=== PATIENT | male | born 1960 | race Caucasian/White ===

== ENCOUNTER 2017-02-05 18:05 | Inpatient (IN) | payer OTHER ==
[~2017-02-05] VITALS: Ht 182.9 cm; Wt 97.5 kg
--- NOTE | ~2017-02-05 | HP ---
Unit #: [id number] #: [id number] Patient: ALEXANDER MARTINEZ III [id number] [place] [address] [id number] MR#: [id number] NAME: ALEXANDER MARTINEZ III ROOM: P180 Age: 56 Sex: M Admission Date: 02/05/2017 : 1960 Attending Physician: Poncho Pendleton M.D. Admitting Physician: Poncho Pendleton M.D. Primary Care Physician: Abner Doctor Not In System HISTORY AND PHYSICAL HISTORY OF PRESENT ILLNESS Alexander is a 56 year old admitted to [facility] because of his continued abuse of alcohol. He has had numerous admissions to this facility for treatment of the same. PAST MEDICAL HISTORY 1. Long history of alcohol abuse. 2. COPD. 3. History of rectal cancer. a. Chemotherapy. b. Colostomy. 4. High blood pressure. PAST SURGICAL HISTORY As above. ALLERGIES No known drug allergies. SOCIAL HISTORY Smokes 1 pack per day. Drinks up to two fifths of liquor on a daily basis and denies illicit drug use. FAMILY HISTORY Medically noncontributory. REVIEW OF SYSTEMS CONSTITUTIONAL: No fever or chills. HEENT: Denies any sore throat, ear pain or runny nose. CARDIOVASCULAR: Denies chest pain, irregular heart rhythm or palpitations. CHEST: Denies shortness of breath or cough. No hemoptysis. GASTROINTESTINAL: Denies nausea, vomiting, diarrhea or chronic constipation. ENDOCRINE: Denies history of increased thirst or urination. No recent significant weight loss or gain. GENITOURINARY: Denies dysuria, frequency, or hematuria. SKIN: Denies any rashes. HEMATOLOGIC: Denies history of increased bleeding or bruising. MUSCULOSKELETAL: Denies any hot, swollen joints. No generalized muscle pain. NEUROLOGIC: Denies problems with vision or speech. No frequent, severe headaches. No numbness, tingling or weakness in any extremities. Denies loss of bladder or bowel control. Unit #: [id number] #: [id number] Patient: ALEXANDER MARTINEZ III CURRENT MEDICATIONS 1. Detox protocol. 2. Remeron 15 mg q.h.s. 3. Trazodone 75 mg q.h.s. 4. Celexa 20 mg daily. 5. Multivitamin 1 daily. PHYSICAL EXAMINATION GENERAL: Alert, well-nourished, in no apparent distress. VITAL SIGNS: Blood pressure 162/100, heart rate 80, respirations 16, temperature 98.6. WEIGHT: 215. HEIGHT: 6 feet 0 inches. SKIN: Warm and dry without rash or lesion. HEENT: Normocephalic. TMs not viewed. Oral and nasal passages clear. Conjunctivae clear. PERRLA. EOMs intact. NECK: Supple without lymphadenopathy or thyromegaly. HEART: Regular rate and rhythm without murmur. LUNGS: Clear. ABDOMEN: Soft, nontender. Colostomy bag noted. : Not done. EXTREMITIES: No evidence of cyanosis, clubbing or edema. Moves all without focal deficit. NEUROLOGICAL: Grossly within normal limits. Cranial Nerves: II: Visual silva are intact. III, IV AND : Extraocular movements are intact. Pupils are equal, round and reactive to light. V: Facial sensation is grossly normal. VII: Facial movements and expression are normal. VIII: Auditory acuity grossly intact. IX, X: Uvula is midline. Phonation is normal. XI: Patient shrugs shoulders and turns head normally. XII: Tongue protrudes in the midline. Sensory and Motor Function: Sensory and motor sensation is grossly normal. Motor: moves all extremities well. Coordination: Gait is normal. Deep Tendon Reflexes: Intact. IMPRESSION Psychiatric admission. RECOMMENDATIONS PSYCHIATRIC: Per psychiatrist. MEDICAL: See no contraindication to participate in facility's activities. MEDICAL PROGNOSIS Good. MEDICAL CONDITION Stable. Dictated by... Mirela Calderon P.A.-C. for Kim Novoa/jag Unit #: [id number] #: [id number] Patient: ALEXANDER MARTINEZ III TD: 02/06/2017 22:19 JOB #: [id number] HISTORY AND PHYSICAL Page 1 of 1 X Mirela Calderon HISTORY AND PHYSICAL
--- NOTE | ~2017-02-05 | PA ---
Unit #: [id number] #: [id number] Patient: ALEXANDER MARTINEZ III [id number] [facility] [address] [place] [address] [id number] MR#: [id number] NAME: ALEXANDER MARTINEZ III ROOM: 80 Age: 56 Sex: M Admission Date: 02/05/2017 : 1960 Date of Assessment: Attending Physician: Poncho Pendleton M.D. Admitting Physician: Poncho Pendleton M.D. Primary Care Physician: Generic Doctor Not In System PSYCHIATRIC ASSESSMENT INFORMANTS The patient's reliability fair; chart reliability, good. CHIEF COMPLAINT Alcohol abuse and alcohol detox. HISTORY OF PRESENT ILLNESS Mr. Alexander Martinez is a 56-year-old male, presented with the above-mentioned complaint. The patient presented with depressive symptom, alcohol abuse. The patient presented with the above-mentioned complaint. The patient presented from [facility] on a 72-hour hold for a suicidal ideation with a plan to drink himself to . The patient reported that he has relapsed 3 months ago and reported drinking daily 2 fifth of vodka, last drink was on 02/05/2017. The patient denied any homicidal ideation or psychotic symptom. The patient reported drinking alcohol since age 13, 2 fifth of vodka daily. Denied any use of any street drugs. The patient reported longest period of sobriety 2 months, last period of sobriety in 2016. The patient reported history of blackouts, withdrawal symptom, but no history of HIV, hepatitis, or IV drug use. The patient reported abdominal cramping, muscle cramping, diarrhea, diaphoresis, depressed mood, headache, irritability, nervousness, poor appetite, poor concentration, restlessness, sleep problem, tremors. Needing inpatient admission at this time for psychiatric stabilization. PAST PSYCHIATRIC HISTORY Remarkable for history of previous treatment in 06/2016. History of outpatient services. History of previous detox in 2003. FAMILY HISTORY AND SOCIAL HISTORY The patient lives with family, has a daughter, daughter's , grandson. The patient's family psychiatric illness is remarkable for history of alcohol abuse in mother's side of the family. No known history of any abuse. MEDICAL HISTORY Remarkable for history of rectal cancer, colostomy bag. Musculoskeletal; muscle strength and tone, no atrophy or abnormal movement. Gait normal. MEDICATION HISTORY The patient is on stool softener. ALLERGIES No known drug allergies. Unit #: [id number] #: [id number] Patient: ALEXANDER MARTINEZ III SUBSTANCE ABUSE HISTORY Please see above. REVIEW OF SYSTEMS HEENT: Eyes, clear. Ears, nose, mouth, and throat; clear. CARDIOVASCULAR: Unremarkable. RESPIRATORY: Unremarkable. GI: Unremarkable. : Unremarkable. SKIN: Unremarkable. LYMPH NODE: Unremarkable. NEUROLOGIC: Unremarkable. ENDOCRINE: Unremarkable. HEMATOLOGIC: Unremarkable. ALLERGIC/IMMUNOLOGIC: Unremarkable. MUSCULOSKELETAL: Muscle strength and tone, no atrophy or abnormal movement. Gait normal. MENTAL STATUS EXAMINATION CONSTITUTIONAL: Measurement of vital signs; temperature 98.5, pulse 109, respirations 16, blood pressure 163/101; height 6 feet and weight 215 pounds. GENERAL APPEARANCE: The patient dressed casually. The patient did not show any facial deformity. MUSCULOSKELETAL: Please see above. PSYCHIATRIC EXAMINATION Description of speech; regular rate, normal volume, normal articulation, coherent. Description of thought process, goal directed. Description of association, intact. Description of abnormal psychotic thinking; the patient denied any hallucination or delusions, but mood lability, sad, depressed, suicidal ideation. Description of the patient's judgment; concerning everyday activity, poor. Social situation, poor. Concerning psychiatric condition, poor. Complete mental status examination; oriented in time, place, and person. Recent and remote memory, fair. Attention span and concentration, fair. Language, able to name object and repeat phrases. Fund of knowledge, aware of current event and passive vocabulary intact. Mood and affect, sad and dysphoric. Insight and judgment, fair to poor. ASSETS AND LIABILITIES Assets; the patient articulate, able to take care of his ADL. Liability; history of depression, substance abuse. ADMITTING DIAGNOSES Psychiatric: Major depressive disorder, recurrent, severe, F33.2; alcohol use disorder, severe, F10.20. Secondary diagnosis: Deferred. Medical diagnoses: Colostomy back, hypertension, hearing problems. Stressors: Psychosocial stressors. PSYCHIATRIC PLAN AND TREATMENT GOAL 1. Advised to admit the patient on the inpatient unit. Provide safe, Unit #: [id number] #: [id number] Patient: ALEXANDER MARTINEZ III supportive, and structured environment. 2. Ordered labs; CBC, CMP, UA, and UDS. 3. Detox protocol and detox monitoring. Advised to resume Celexa. The patient to attend all the programing with group therapy, individual therapy, chemical dependency group. Treatment goal to attain euthymic mood, gain insight into his problem, and learn coping skills. DISCHARGE PLAN Plan to stabilize the patient and consider followup in outpatient program. ESTIMATED LENGTH OF STAY 3 to 5 days. Dictated by... Kim Ruth/nabeel TD: 02/07/2017 00:10 JOB #: [id number] PSYCHIATRIC ASSESSMENT Page 1 of 1 X Poncho Pendleton MD X PSYCHIATRIC ASSESSMENT
--- NOTE | ~2017-02-05 | PN ---
Unit #: [id number] #: [id number] Patient: ALEXANDER MARTINEZ III [id number] [facility] [address] [place] [address] [id number] MR#: [id number] NAME: ALEXANDER MARTINEZ III ROOM: P180 Age: Sex: M Admission Date: 02/05/2017 : 1960 Attending Physician: Poncho Pendleton M.D. Admitting Physician: Poncho Pendleton M.D. Primary Care Physician: Generic Doctor Not In System [facility] PROGRESS NOTES DATE OF SERVICE 02/06/2017 DISCUSSION Alexander Martinez is a 56-year-old male seen on 02/06/2017. Patient interviewed, chart reviewed, I obtained information from nursing staff. Patient continues to be sad, depressed, flat, withdrawn, isolative, guarded, having withdrawal symptoms. Vital signs: 98.4, 109, 163/101 COMPLETE REVIEW OF SYSTEMS Unremarkable. MENTAL STATUS EXAMINATION GENERAL APPEARANCE: Patient dressed casually. ATTENTION SPAN AND CONCENTRATION: Fair. Oriented in time, place and person. MOOD AND AFFECT: Sad, dysphoric flat. SPEECH: Monotone. THOUGHT PROCESS: [place]. Patient reported having passive SI, denied any homicidal ideation or psychotic symptom. RECENT AND REMOTE MEMORY: Poor. INSIGHT AND JUDGMENT: Poor. DIAGNOSES Major depressive disorder, recurrent, severe Alcohol use disorder, severe ASSESSMENT/PLAN Advised to continue with current medication and therapeutic protocol. If needed, consider further adjustment in medication. Dictated by... Kim Ruth/aleta TD: 02/06/2017 23:55 JOB #: [id number] Unit #: [id number] #: [id number] Patient: ALEXANDER MARTINEZ III PROGRESS NOTES Page 1 of 1 X Poncho Pendleton MD PROGRESS NOTE
--- NOTE | ~2017-02-05 | DS ---
Unit #: [id number] #: [id number] Patient: ALEXANDER MARTINEZ III [id number] [facility] [address] [place] [address] [id number] I MR#: [id number] NAME: ALEXANDER MARTINEZ III ROOM: [facility] Age: 56 Sex: M Admission Date: 02/05/2017 : 1960 Discharge Date: 02/11/2017 Attending Physician: Poncho Pendleton M.D. Primary Care Physician: Generic Doctor Not In System DISCHARGE SUMMARY REASON FOR ADMISSION Alcohol abuse, depression. DIAGNOSTIC STUDIES LABORATORY RESULTS: Remarkable for alkaline phosphatase 137 and hemoglobin 11.4. HOSPITAL COURSE The patient was admitted to inpatient unit on 02/05/2017 and discharged on 02/11/2017. The patient was treated on the inpatient unit with group therapy, individual therapy, chemical dependency group, detox protocol, detox monitoring, psychotherapy. The patient was responsive to treatment. Subsequently, the patient was discharged with a plan to follow up in outpatient program. DISCHARGE MEDICATIONS Lopressor 100 mg b.i.d. for hypertension and Norvasc 10 mg daily for hypertension. DISCHARGE DIAGNOSES Psychiatric: Major depressive disorder, recurrent, severe, F33.2; alcohol use disorder, severe, F10.20. Secondary diagnosis: Deferred. Medical diagnoses: The patient has a colostomy bag, hypertension, hearing problems. Stressors: Psychosocial stressors. DISCHARGE INSTRUCTIONS The patient to follow up in outpatient clinic as per social and human services assistant. CONDITION ON DISCHARGE The patient was pleasant and cooperative. Denied any psychotic symptom or any suicidal ideation. PROGNOSIS Guarded. DIET AND ACTIVITY As tolerated. Unit #: [id number] #: [id number] Patient: ALEXANDER MARTINEZ III Dictated by... Kim Ruth/nabeel TD: 02/11/2017 16:37 JOB #: [id number] DISCHARGE SUMMARY Page 1 of 1 X Poncho Pendleton MD X DISCHARGE SUMMARY
--- NOTE | ~2017-02-05 | PN ---
Unit #: [id number] #: [id number] Patient: ALEXANDER MARTINEZ III [id number] [facility] [address] [place] [address] [id number] I MR#: [id number] NAME: ALEXANDER MARTINEZ III ROOM: P180 Age: 56 Sex: M Admission Date: 02/05/2017 : 1960 Attending Physician: Poncho Pendleton M.D. Admitting Physician: Poncho Pendleton M.D. Primary Care Physician: Generic Doctor Not In System [facility] PROGRESS NOTES DATE 02/09/2017 DISCUSSION Alexander Martinez is a 56-year-old male seen on 02/09/2017. Patient interviewed. Chart reviewed. Obtained information from nursing staff. Patient continues to be anxious, nervous. Reports still having withdrawal symptoms, restlessness, anxiety. Patient's vital signs 97.4, 126, 152/85. Mood labile, sad, dysphoric, withdrawn. Complete review of system unremarkable. MENTAL STATUS EXAMINATION General appearance, patient dressed casually. Attention span, concentration fair. Oriented in time, place and person. Mood and affect sad, dysphoric. Speech monotone. Thought process concrete. Patient denied any thoughts of harming self or others but withdrawn, isolative, guarded, seclusive, anxious. Recent and remote memory poor. Insight and judgement poor. DIAGNOSES 1. Alcohol use disorder, severe. 2. Mood disorder NOS. ASSESSMENT/PLAN Advised to continue with current medication and therapeutic protocol. If needed, consider further adjustment of medication. Dictated by... Kim Ruth/jag TD: 02/09/2017 22:02 JOB #: [id number] Unit #: [id number] #: [id number] Patient: ALEXANDER MARTINEZ III [facility] PROGRESS NOTES Page 1 of 1 X Poncho Pendleton MD PROGRESS NOTE
--- NOTE | ~2017-02-05 | PN ---
Unit #: [id number] #: [id number] Patient: ALEXANDER MARTINEZ III [id number] [facility] [address] [place] [address] [id number] MR#: [id number] NAME: ALEXANDER MARTINEZ III ROOM: P180 Age: 56 Sex: M Admission Date: 02/05/2017 : 1960 Attending Physician: Poncho Pendleton M.D. Admitting Physician: Poncho Pendleton M.D. Primary Care Physician: Generic Doctor Not In System [facility] PROGRESS NOTES DATE OF SERVICE 02/08/2017 DISCUSSION Alexander Martinez is a 56-year-old male. Patient interviewed, chart reviewed, I obtained information from nursing staff. Patient compliant, cooperative. Patient reported that he is feeling better, but still somewhat anxious, nervous, having withdrawal symptoms; mood sad, dysphoric; flat affect, withdrawn, isolative. COMPLETE REVIEW OF SYSTEMS Unremarkable. MENTAL STATUS EXAMINATION GENERAL APPEARANCE: Patient dressed casually. ATTENTION SPAN AND CONCENTRATION: Fair. ORIENTATION: Time, place and person. MOOD AND AFFECT: Labile. SPEECH: Monotone. THOUGHT PROCESS: [place]. Patient denied any thoughts of harming self or others. RECENT AND REMOTE MEMORY: Poor. INSIGHT AND JUDGMENT: Poor. DIAGNOSES Mood disorder, NOS Alcohol use disorder, severe ASSESSMENT/PLAN Advised to continue with current medication and therapeutic protocol. If needed, consider further adjustment in medication. Dictated by... Kim Ruth/aleta TD: 02/09/2017 03:14 JOB #: [id number] Unit #: [id number] #: [id number] Patient: ALEXANDER MARTINEZ III [facility] PROGRESS NOTES Page 1 of 1 X Poncho Pendleton MD PROGRESS NOTE
--- NOTE | ~2017-02-05 | PN ---
Unit #: [id number] #: [id number] Patient: ALEXANDER MARTINEZ III [id number] [facility] [address] [place] [address] [id number] I MR#: [id number] NAME: ALEXANDER MARTINEZ III ROOM: P180 Age: 56 Sex: M Admission Date: 02/05/2017 : 1960 Attending Physician: Poncho Pendleton M.D. Admitting Physician: Poncho Pendleton M.D. Primary Care Physician: Generic Doctor Not In System [facility] PROGRESS NOTES DATE 02/10/2017 DISCUSSION Alexander Martinez is a 56-year-old male, seen on 02/10/2017. The patient interviewed, chart reviewed, and obtained information from the nursing staff. The patient tolerating medication fairly well, compliant and cooperative, making progress. No side effects from medication. The patient's vital signs, 97.4, 127, 16, and 200/100. REVIEW OF SYSTEMS Complete review of systems unremarkable. MENTAL STATUS EXAMINATION General appearance: Patient dressed casually. Attention span and concentration, fair. Oriented in place and person. Mood and affect, labile. Speech, monotone. Thought process, concrete. The patient denied any thoughts of harming self or others or any psychotic symptoms. Recent and remote memory, poor. Insight and judgment, poor. DIAGNOSES 1. Alcohol use disorder, severe. 2. Mood disorder, NOS. ASSESSMENT/PLAN Advised to continue with the current medication and therapeutic protocol, and if needed consider further adjustment of medication. Dictated by... Kim Ruth/amrita TD: 02/12/2017 05:33 JOB #: [id number] Unit #: [id number] #: [id number] Patient: ALEXANDER MARTINEZ III [facility] PROGRESS NOTES Page 1 of 1 X Poncho Pendleton MD PROGRESS NOTE
--- NOTE | ~2017-02-05 | PN ---
Unit #: [id number] #: [id number] Patient: ALEXANDER MARTINEZ III [id number] [facility] [address] [place] [address] [id number] I MR#: [id number] NAME: ALEXANDER MARTINEZ III ROOM: 80 Age: 56 Sex: M Admission Date: 02/05/2017 : 1960 Attending Physician: Poncho Pendleton M.D. Admitting Physician: Poncho Pendleton M.D. Primary Care Physician: Generic Doctor Not In System [facility] PROGRESS NOTES DATE OF SERVICE 02/07/2017 DISCUSSION Mr. Alexander Martinez is a 56-year-old male seen on 02/07/2017. Patient interviewed, chart reviewed. Obtained information from nursing staff. Patient was compliant and cooperative. Mood sad, dysphoric, flat affect. Patient was started back on his anti-hypertensive and feeling better. The patient's blood pressure was 200/168, temperature 97.4, pulse 127. Complete review of systems unremarkable. MENTAL STATUS EXAMINATION General appearance, patient dressed casually. Attention span and concentration fair. Oriented to time, place and person. Mood and affect labile. Speech monotone. Thought process concrete. Patient denied any suicidal or homicidal ideation but sad, depressed, withdrawn, isolative, having withdrawal symptoms as mentioned above. Recent and remote memory poor. Insight and judgement poor. DIAGNOSES 1. Mood disorder NOS. 2. Alcohol use disorder severe. ASSESSMENT/PLAN Advise to continue with current medication and therapeutic protocol. Continue with the detox protocol and monitoring. If needed consider further adjustment of medication. Dictated by... Kim Ruth/mckenzie TD: 02/07/2017 22:51 JOB #: [id number] Unit #: [id number] #: [id number] Patient: ALEXANDER MARTINEZ III PROGRESS NOTES Page 1 of 1 X Poncho Pendleton MD PROGRESS NOTE
[2017-02-06 09:55] LABS: URINE APPEARANCE CLEAR; URINE BILIRUBIN NEG (NEG); URINE BLOOD NEG (NEG); URINE COLOR YELLOW; URINE GLUCOSE NEG (NEG); URINE KETONE NEG (NEG); URINE LEUKOCYTE ESTERASE NEG (NEG); URINE NITRATE NEG (NEG); URINE PROTEIN TRACE (NEG); URINE SPECIFIC GRAVITY 1.026 (1.003-1.035); URINE UROBILINOGEN 0.2 MG/DL (NEG)
[2017-02-06 09:56] LABS: BASOPHIL% 0.4 % (0-2.5); EOSINOPHIL# 0.1 X10e3 (0-0.7); EOSINOPHIL% 0.9 % (0.0-7.0); HEMATOCRIT 37.7 % (38.0-50.0); HEMOGLOBIN 11.7 gm/dL (13.0-16.0); LYMPHOCYTE# 1.1 X10e3 (1.0-3.5); LYMPHOCYTE% 15.5 % (17.0-45.0); MEAN CELL VOLUME 77.8 FL (83-96); MEAN CORPUSCULAR HEMOGLOBIN 24.1 PG (28-34); MEAN PLATELET VOLUME 7.6 FL (6.5-11.5); MONOCYTE# 0.5 X10e3 (0-1.0); MONOCYTE% 6.5 % (3.0-12.0); NEUTROPHIL# 5.4 X10e3 (1.5-7.1); NEUTROPHIL% 76.7 % (40-75); PLATELET COUNT 275 X10e3 (140-420); RED BLOOD COUNT 4.84 X10e (3.90-5.60); WHITE BLOOD COUNT 7.1 X10e3 (4.0-10.5)
[2017-02-06 10:01] LABS: DIFF IND NO
[2017-02-06 10:16] LABS: ALBUMIN SERUM 3.8 g/dL (3.5-5.0); BILIRUBIN,TOTAL 0.7 mg/dL (0.2-2.0); CREATININE SERUM 0.8 mg/dL (0.6-1.4); GLOM FILT RATE Estimated 99.2 mL/min (>60); POTASSIUM 4.1 mmol/L (3.5-5.1); PROTEIN TOTAL SERUM 7.2 g/dL (6.0-8.3)
[2017-02-06 11:01] LABS: AMPHETAMINE NEG (NEG); BARBITURATES NEG (NEG); BENZODIAZEPINES NEG (NEG); COCAINE NEG (NEG); MARIJUANA NEG (NEG); OPIATES NEG (NEG); TRICYCLIC ANTIDEPRESSANTS NEG (NEG); U METHADONE NEG (NEG)
== END 2017-02-11 10:55 | disposition home or self-care (01) | DRG 885 ==
LOC: P1E 22:05
PROVIDERS: Psychiatry & Neurology Psychiatry
PROC: HZ2ZZZZ Detoxification Services for Substance Abuse Treatment (ICD-10-PCS; principal; 2017-02-05)
DX: F33.2 Major depressive disorder, recurrent severe without psychotic features (principal); R45.851 Suicidal ideations; F39 Unspecified mood [affective] disorder; F10.20 Alcohol dependence, uncomplicated; I10 Essential (primary) hypertension; H91.90 Unspecified hearing loss, unspecified ear; F17.210 Nicotine dependence, cigarettes, uncomplicated; Z93.3 Colostomy status
CPT/HCPCS: 80053; 80307; 81003; 85025; 86592

== ENCOUNTER 2017-02-14 11:17 | Inpatient (IN) | payer OTHER ==
[~2017-02-14] VITALS: Ht 88.9 cm; Wt 97.5 kg
--- NOTE | ~2017-02-14 | DS ---
Unit #: [id number] #: [id number] Patient: ALEXANDER MARTINEZ III [id number] [facility] [address] [place] [address] [id number] I MR#: [id number] NAME: ALEXANDER MARTINEZ III ROOM: [facility] Age: 56 Sex: M Admission Date: 02/14/2017 : 1960 Discharge Date: 02/18/2017 Attending Physician: Poncho Pendleton M.D. Primary Care Physician: Generic Doctor Not In System DISCHARGE SUMMARY REASON FOR ADMISSION Alcohol abuse, depression. DIAGNOSTIC STUDIES LABORATORY DATA: Unremarkable. HOSPITAL COURSE The patient was admitted to inpatient unit on 02/14/2017 and discharged on 02/18/2017. The patient was treated with group therapy, individual therapy, medication management, chemical dependency group. The patient was responsive to treatment, showed improvement. Subsequently the patient was discharged with a plan to follow up in outpatient program. DISCHARGE MEDICATIONS 1. Norvasc 10 mg daily for hypertension. 2. Lopressor 100 mg twice daily for hypertension. 3. Celexa 20 mg daily for depression. 4. Vistaril 25 mg 3 times a day for anxiety. DISCHARGE DIAGNOSES PSYCHIATRIC: Major depressive disorder, recurrent, severe, F33.2 Alcohol use disorder, severe. SECONDARY: Deferred. MEDICAL: Colostomy bag. Hypertension. Hearing problem. STRESSORS: Psychosocial stressor. FOLLOWUP CARE The patient to follow up in outpatient clinic as per licensed clinical social worker. CONDITION AT DISCHARGE The patient pleasant, cooperative. Denied any psychotic symptom or any suicidal ideation. PROGNOSIS Guarded. DIET AND ACTIVITY As tolerated. The patient to receive a Vivitrol shot upon discharge, 380 mg deep intramuscular IM every 30 days. Unit #: [id number] #: [id number] Patient: ALEXANDER MARTINEZ III Dictated by... Poncho Pendleton M.D. SZC/bzg TD: 02/21/2017 07:24 JOB #: [id number] DISCHARGE SUMMARY Page 1 of 1 X Poncho Pendleton MD DISCHARGE SUMMARY
--- NOTE | ~2017-02-14 | HP ---
Unit #: [id number] #: [id number] Patient: ALEXANDER MARTINEZ III [id number] [facility] [address] [place] [address] [id number] I MR#: [id number] NAME: ALEXANDER MARTINEZ III ROOM: P171 Age: 56 Sex: M Admission Date: 02/14/2017 : 1960 Attending Physician: Poncho Pendleton M.D. Admitting Physician: Poncho Pendleton M.D. Primary Care Physician: Generic Doctor Not In System HISTORY AND PHYSICAL HISTORY OF PRESENT ILLNESS Alexander is a 56 year old admitted to [facility] because of his continued abuse of alcohol. He was just discharged from this facility after treatment for the same. The patient was seen and H and P dated 02/06/2017 was reviewed. This is current. No changes. Please see H and P dated 02/06/2017. Dictated by... Mirela Calderon PJenifferARl. for Kim Novoa/gabino TD: 02/15/2017 14:08 JOB #: [id number] HISTORY AND PHYSICAL Page 1 of 1 X Mirela Calderon HISTORY AND PHYSICAL
--- NOTE | ~2017-02-14 | PN ---
Unit #: [id number] #: [id number] Patient: ALEXANDER MARTINEZ III [id number] [facility] [address] [place] [address] [id number] I MR#: [id number] NAME: ALEXANDER MARTINEZ III ROOM: P171 Age: 56 Sex: M Admission Date: 02/14/2017 : 1960 Attending Physician: Poncho Pendleton M.D. Admitting Physician: Poncho Pendleton M.D. Primary Care Physician: Generic Doctor Not In System [facility] PROGRESS NOTES DATE 02/16/2017 DISCUSSION Mr. Alexander Martinez is a 56-year-old male seen on 02/16/2017. Patient interviewed. Chart reviewed. Obtained information from nursing staff. Patient withdrawn, isolative, flat affect. Sad, dysphoric mood. Patient tolerating medication fairly well. Complete review of system unremarkable. MENTAL STATUS EXAMINATION General appearance, patient dressed casually. Attention span, concentration fair. Oriented in time, place and person. Mood and affect labile. Speech monotone. Thought process concrete. Patient denied any thoughts of harming self or others but seclusive, isolative, guarded, withdrawn. Recent and remote memory poor. Insight and judgement poor. DIAGNOSES 1. Mood disorder NOS. 2. Alcohol use disorder, severe. ASSESSMENT/PLAN Advised to continue with current medication and therapeutic protocol. If needed, consider further adjustment of medication. Dictated by... Kim Ruth/jag TD: 02/16/2017 17:27 JOB #: [id number] Unit #: [id number] #: [id number] Patient: ALEXANDER MARTINEZ III [facility] PROGRESS NOTES Page 1 of 1 X Poncho Pendleton MD PROGRESS NOTE
--- NOTE | ~2017-02-14 | PN ---
Unit #: [id number] #: [id number] Patient: ALEXANDER MARTINEZ III [id number] [facility] [address] [place] [address] [id number] MR#: [id number] NAME: ALEXANDER MARTINEZ III ROOM: P171 Age: 56 Sex: M Admission Date: 02/14/2017 : 1960 Attending Physician: Poncho Pendleton M.D. Admitting Physician: Poncho Pendleton M.D. Primary Care Physician: Generic Doctor Not In System [facility] PROGRESS NOTES DATE OF SERVICE 02/15/2017 DISCUSSION Alexander Martinez is a 56-year-old male seen on 02/15/2017. Patient interviewed, chart reviewed. Obtained information from nursing staff. Patient continues to report feeling sad, depressed, anxious. Still feeling sad, depressed, suicidal ideation. The patient having withdrawal symptoms. The patient's vital signs 98.0, 109, 18, 148/87. MENTAL STATUS EXAMINATION General appearance, patient dressed casually. Attention span and concentration fair. Oriented to place and person. Mood and affect labile. Speech monotone. Thought process concrete. Patient denied any thoughts of harming self or others but having passive SI, withdrawn, seclusive. Recent and remote memory poor. Insight and judgement poor. DIAGNOSES 1. Mood disorder NOS. 2. Alcohol use disorder Severe. ASSESSMENT/PLAN Advise to continue with current medication and therapeutic protocol. If needed consider further adjustment of medication. Dictated by... Kim Ruth/mckenzie TD: 02/15/2017 22:32 JOB #: [id number] Unit #: [id number] #: [id number] Patient: ALEXANDER MARTINEZ III [facility] PROGRESS NOTES Page 1 of 1 X Poncho Pendleton MD PROGRESS NOTE
--- NOTE | ~2017-02-14 | PA ---
Unit #: [id number] #: [id number] Patient: ALEXANDER MARTINEZ III [id number] [facility] [address] [place] [address] [id number] MR#: [id number] NAME: ALEXANDER MARTINEZ III ROOM: [facility] Age: 56 Sex: M Admission Date: 02/14/2017 : 1960 Date of Assessment: Attending Physician: Poncho Pendleton M.D. Admitting Physician: Poncho Pendleton M.D. Primary Care Physician: Generic Doctor Not In System PSYCHIATRIC ASSESSMENT INFORMANTS The patient reliability, fair informant and chart reliability, good. CHIEF COMPLAINT Suicidal ideation. HISTORY OF PRESENT ILLNESS Mr. Alexander Martinez III was admitted on 02/14/2017 with the above-mentioned complaint. The patient was last admitted on 02/05/2017 and discharged on 02/10/2017, presented with drinking and suicidal ideation. The patient presented due to suicidal ideation with alcohol abuse. The patient reported that he is suicidal and does not know what his plans for suicide. The patient reported that he drinks about two-fifths of vodka daily, last use this morning, with BA level of 0.233. The patient denied any homicidal ideation or psychotic symptom. He reports that he has issues with colostomy bag and feels hopeless, sad, and depressed. The patient reported having issues with sleep and poor appetite and reported starting to have withdrawal symptoms. The patient needing inpatient admission at this time for psychiatric stabilization. PAST PSYCHIATRIC HISTORY Remarkable for [facility] History of previous detox in 2003. FAMILY HISTORY AND SOCIAL HISTORY The patient lives with family, has good support system from daughter, daughter's , and grandson. The patient's family psychiatric illness is remarkable for history of alcohol abuse in mother's side of the family. No history of any abuse. MEDICAL HISTORY Remarkable for history of rectal cancer and colostomy bag. Musculoskeletal; muscle strength and tone, no atrophy or abnormal movement. Gait normal. MEDICATION HISTORY The patient is on Lopressor 100 mg b.i.d. and Vistaril 25 mg b.i.d. The patient is also on Celexa 20 mg daily and amlodipine 10 mg daily. ALLERGIES No known drug allergies. SUBSTANCE ABUSE HISTORY Unit #: [id number] #: [id number] Patient: ALEXANDER MARTINEZ III History of alcohol use, last use recently. The patient reported two-fifth of vodka daily, age of onset of drinking 13. The patient denied any use of any street drugs. The patient reported history of blackout and withdrawal symptoms. No history of any HIV, hepatitis, or any IV drug use. REVIEW OF SYSTEMS HEENT: Eyes, clear. Ears, nose, mouth, and throat; clear. CARDIOVASCULAR: Unremarkable. RESPIRATORY: Unremarkable. GI: Unremarkable. : Unremarkable. SKIN: Unremarkable. LYMPH NODE: Unremarkable. NEUROLOGIC: Unremarkable. ENDOCRINE: Unremarkable. HEMATOLOGIC: Unremarkable. ALLERGIC/IMMUNOLOGIC: Unremarkable. MUSCULOSKELETAL: Muscle strength and tone, no atrophy or abnormal movement. Gait normal. MENTAL STATUS EXAMINATION CONSTITUTIONAL: Measurement of vital signs; temperature 98.1, heart rate 100, respiratory rate 16, and blood pressure 168/101. Weight is 215 pounds. GENERAL APPEARANCE: The patient dressed casually. No facial deformity noted. MUSCULOSKELETAL: Please see above. PSYCHIATRIC EXAMINATION Description of speech; regular rate, normal volume, normal articulation, and coherent. Description of thought process, goal directed. Description of association, intact. Description of abnormal psychotic thinking; the patient denied any hallucination, but suicidal ideation and depression. Description of the patient's judgment: Concerning everyday activity, poor. Social situation, poor. Concerning psychiatric condition, poor. Complete mental status examination; oriented in time, place, and person. Recent and remote memory, fair. Attention span and concentration, fair. Language, able to name object and repeat phrases. Fund of knowledge, aware of current event and passive vocabulary intact. Mood and affect, sad and dysphoric. Insight and judgment, fair to poor. ASSETS AND LIABILITIES Assets, the patient is articulate and able to take care of his ADL. Liability, history of depression and substance abuse. ADMITTING DIAGNOSES Psychiatric: Major depressive disorder, recurrent, severe, F33.2 and alcohol use disorder, severe, F10.20. Secondary diagnosis: Deferred. Medical diagnoses: Colostomy bag, hypertension, and hearing problem. Stressors: Psychosocial stressors. PSYCHIATRIC PLAN AND TREATMENT GOAL AND DISCHARGE PLAN 1. Advised to admit the patient on the inpatient unit. Provide safe, Unit #: [id number] #: [id number] Patient: ALEXANDER MARTINEZ III supportive, and structured environment. 2. Ordered labs; CBC, CMP, UA, and UDS. 3. Detox protocol and detox monitoring. Advised to resume home medication and also advised ReVia 50 mg with a plan to consider Vivitrol injection. The patient to attend chemical dependency group. Treatment goal to attain euthymic mood, gain insight into his problem, and learn coping skills. DISCHARGE PLAN Plan to stabilize the patient and consider followup in outpatient program. ESTIMATED LENGTH OF STAY 5 to 7 days. Dictated by... Kim Ruth/nabeel TD: 02/15/2017 18:07 JOB #: [id number] PSYCHIATRIC ASSESSMENT Page 1 of 1 X Poncho Pendleton MD X PSYCHIATRIC ASSESSMENT
--- NOTE | ~2017-02-14 | PN ---
Unit #: [id number] #: [id number] Patient: ALEXANDER MARTINEZ III [id number] [facility] [address] [place] [address] [id number] MR#: [id number] NAME: ALEXANDER MARTINEZ III ROOM: P171 Age: 56 Sex: M Admission Date: 02/14/2017 : 1960 Attending Physician: Poncho Pendleton M.D. Admitting Physician: Poncho Pendleton M.D. Primary Care Physician: Generic Doctor Not In System [facility] PROGRESS NOTES DATE OF SERVICE: 02/17/2017 DISCUSSION Alexander Martinez is a 56-year-old male, seen on 02/17/2017. The patient interviewed, chart reviewed, and obtained information from nursing staff. The patient was admitted with suicidal ideation, reports feeling better. The patient currently on ReVia, reports feeling better. Vital signs; temperature 98.4, pulse 91, blood pressure 165/100. The patient has a history of hypertension and alcohol withdrawal. The patient will be getting injection Vivitrol tomorrow after discharge. Complete review of systems unremarkable. MENTAL STATUS EXAMINATION General appearance, the patient dressed casually. Attention span and concentration, fair. Oriented in time, place, and person. Mood and affect, labile. Speech, monotone. Thought process, concrete. The patient denied any thoughts of harming self or others or any psychotic symptom. Recent and remote memory, poor. Insight and judgment, poor. DIAGNOSES 1. Mood disorder, not otherwise specified. 2. Alcohol use disorder, severe. ASSESSMENT AND PLAN Advised to continue with current medication and therapeutic protocol. Continue with current medication with a plan to give Vivitrol injection after discharge from the facility. Dictated by... Kim Ruth/nabeel TD: 02/17/2017 12:01 JOB #: [id number] Unit #: [id number] #: [id number] Patient: ALEXANDER MARTINEZ III [facility] PROGRESS NOTES Page 1 of 1 X Poncho Pendleton MD PROGRESS NOTE
== END 2017-02-18 14:10 | DRG 885 ==
LOC: P1E 14:25
PROC: HZ2ZZZZ Detoxification Services for Substance Abuse Treatment (ICD-10-PCS; principal; 2017-02-14)
DX: F33.2 Major depressive disorder, recurrent severe without psychotic features (principal); R45.851 Suicidal ideations; F39 Unspecified mood [affective] disorder; F10.20 Alcohol dependence, uncomplicated; Z93.3 Colostomy status; H91.90 Unspecified hearing loss, unspecified ear; I10 Essential (primary) hypertension; Z85.048 Personal history of other malignant neoplasm of rectum, rectosigmoid junction, and anus
CPT/HCPCS: 86592